=== PATIENT | male | born 2000 | race Caucasian/White ===

== ENCOUNTER → 2019-11-23 15:40 | Outpatient (BNVA) | payer OTHER, SELFPAY | PROVIDERS: Visit Provider Nurse Practitioner Family | DX: Z20.828 Contact with and (suspected) exposure to other viral communicable diseases (principal) | CPT/HCPCS: 87635 ==

== ENCOUNTER 2021-11-04 13:17 | Emergency (ER) | payer SELFPAY ==
[2021-11-04 13:22] VITALS: BP 130/84; PULSE 98; RESP 16; TEMP 36.6; O2SAT 98
--- NOTE | 2021-11-04 13:48 | XR_ITS ---
WS: [id number] Exam: XR hip RT 4V wo/w [place] [id number] Date/Time of Exam: 11/04/2021 2:03 PM Reason For Exam: ongoing hip pain and limping Findings: No fractures or bone anomalies are noted. No unusual soft tissue masses or calcifications are seen. The bony elements of the hip are in adequate alignment. XR/XR hip RT 4V wo/w pel [id number] IMPRESSION: Negative right hip. Tonnis classification: 0
--- NOTE | 2021-11-04 14:06 | ED_ITS ---
HPI - Extremity Problem General: Chief complaint: Extremity Injury, Lower Stated complaint: right hip pain Time Seen by Provider: 11/04/21 13:35 History of Present Illness: Patient is a 21-year-old male in today for chronic hip pain. He reports that approximately a year ago he was wrestling with his girlfriend and since then his hip is really been hurting on the right side. He reports it is in his right buttocks and around the side of his hip sometimes the pain radiates is a burning pain down his leg to his knee. He reports that he limps frequently and sometimes he really has a difficult time walking. He states that after a year it is just getting no better. Associated symptoms: Deny fever(s) Review of Systems Const: Denies: fever(s), chills or body aches Musc: Reports: joint pain PFS ED PFSH: Family History Denies family history of Diabetes Hypertension Social History Smoking and tobacco status: never smoked Alcohol intake: never Physical Exam Const: COMMON NORMALS: no acute distress, patient oriented x3 and alert Extremity: NARRATIVE EXTREMITY EXAM: Right-sided hip pain. There is reproducible pain noted with palpation in the right buttocks in the region of the sciatic nerve. No obvious bony or soft tissue deformity is appreciated. Patient is ambulating with a noted limp. Neuro: COMMON NORMALS: patient oriented x3 SENSORIUM/ORIENTATION: Yes alert Course Vital Signs: Vital signs: Vital Signs Temperature 98.3 F 11/04/21 14:42 Pulse Rate 78 11/04/21 14:42 Respiratory Rate 14 11/04/21 14:42 Blood Pressure 121/75 11/04/21 14:42 Pulse Oximetry 99 11/04/21 14:42 Oxygen Delivery Me thod 11/04/21 13:22 MDM - Extremity (Nontraumatic) Medical Decision Making 21-year-old male in with chronic right hip pain x1 year. Orts that he has done conservative measures at home and is really not improving at all. Difficult for him to walk at times. The male does have a noted limp. No obvious soft tissue or bony deformities appreciated on physical exam. There is tenderness to palpation of the right buttocks in the region of the sciatic nerve. Wet read 4 view hip x-rays: I do not appreciate any acute fracture or other osseous abnormality. Radiologist read: Negative right hip. Advised patient that his pain is consistent with sciatica. We discussed conservative treatments at home. We discussed gentle stretching. I recommend that he follow-up with his primary care provider for ongoing monitoring and evaluation of this chronic problem. Return to the emergency department as needed for worsening symptoms. Lab Data Radiology Impressions Hip/Pelvis X-Ray 11/04/21 13:48 IMPRESSION: Negative right hip. Tonnis classification: 0 Discharge Plan Discharge Patient Disposition: Home Clinical Impression: Sciatica Condition: Stable Prescriptions: New cyclobenzaprine 10 mg tablet 10 mg PO TID PRN (Reason: muscle spasm) Qty: 10 0RF Discharge Orders: Discharge ED (Routine); Ordered 11/04/21 Ordered By: Lily Dupont Discharge Diet: Usual diet Discharge Activity: Increase activity as tolerated Patient Instructions: Sciatica (ED) Activity Restrictions/Additional Instructions: I recommend conservative treatments including warm moist heat to the affected area. Be sure to do gentle stretches like we discussed in the emergency depart ment. Follow-up with your primary care provider next week for continued monitoring and evaluation of your chronic hip pain. Return to the ER for any new or worsening symptoms. Stand Alone Forms: Work/School Release Coding Level of Care Code ED Product [employer] for [employer] Exam Problem Focused
[2021-11-04] MEDS: ketorolac 60 mg/2 mL INJ IM (14:22)
[2021-11-04 14:42] VITALS: BP 121/75; PULSE 78; RESP 14; TEMP 36.8; O2SAT 99
== END 2021-11-04 14:43 | disposition home or self-care (01) ==
PROVIDERS: Emergency Provider Nurse Practitioner Family
DX: M54.30 Sciatica, unspecified side (principal)
CPT/HCPCS: 73503; 96372; 99284; J1885